=== PATIENT | female | born 1985 | race American Indian/Alaskan Native ===

== ENCOUNTER 2022-09-12 11:29 | Emergency (ER) | payer OTHER, BC ==
[2022-09-12] MEDS ORDERED: Ketorolac 30 MG/ML SDV IM ONE (14:00)
== END 2022-09-12 16:35 | disposition home or self-care (01) ==
LOC: MW.ED 11:29
DX: S80.11XA Contusion of right lower leg, initial encounter (principal); W18.30XA Fall on same level, unspecified, initial encounter; Y99.0 Civilian activity done for income or pay
CPT/HCPCS: 73562; 73590; 96372; 99283; J1885